=== PATIENT | male | born 1990 | race Caucasian/White ===

== ENCOUNTER → 2016-11-13 | Outpatient (CLI) | payer BC ==
[2016-11-13 07:33] LABS: CHLORIDE,CL 106 mmol/L (98-110); SODIUM,NA 143 mmol/L (136-146)
== END ==
LOC: MW.LAB 06:27
PROVIDERS: ATTEND Nurse Practitioner Family
DX: R10.9 Unspecified abdominal pain (principal); R19.7 Diarrhea, unspecified
CPT/HCPCS: 36415; 80053; 81001; 82272; 83630; 84443; 85025; 87046; 87324; 87328; 87329; 87338; 87899

== ENCOUNTER → 2016-11-14 | Outpatient (CLI) | payer BC ==
--- NOTE | 2016-11-14 09:13 | CR ---
EXAMINATION: Abdomen HISTORY: Pain COMPARISON: None TECHNIQUE: AP and upright views FINDINGS: There is no free air under the diaphragm. There is a nonobstructive bowel gas pattern. No abnormal calcifications. No organomegaly. The visualized osseous structures appear normal. IMPRESSION: Unremarkable abdominal films.
== END | disposition home or self-care (01) ==
LOC: MW.DI 08:30
PROVIDERS: ATTEND Nurse Practitioner Family
DX: R10.9 Unspecified abdominal pain (principal); R19.7 Diarrhea, unspecified
CPT/HCPCS: 74020; 74020-26

== ENCOUNTER 2019-02-28 14:43 | Emergency (ER) | payer BC ==
--- NOTE | 2019-02-28 14:58 | EDM.PDOC ---
ED HPI GENERAL MEDICAL PROBLEM - General Chief Complaint: Skin Complaint Stated Complaint: SORE ON TAIL BONE Time Seen by Provider: 02/28/19 14:44 Source of Information: Reports: Patient History Limitations: Reports: No Limitations - History of Present Illness INITIAL COMMENTS - FREE TEXT/NARRATIVE: HISTORY AND PHYSICAL: History of present illness: Patient is a 28-year-old male who presents to the emergency room with concerns of an abscess to his tailbone. Patient reports he has had pilonidal cysts in the past and presentation today is similar.Patient denies any fever, chills, headache, change in vision, syncope or near syncope. Denies any chest pain, back pain, shortness of breath or cough. Denies any abdominal pain, nausea, vomiting, diarrhea, constipation or dysuria. Has not noted any blood in urine or stool. Denies any testicular swelling, erythema or discomfort. Patient has been eating and drinking appropriately. Review of systems: As per history of present illness and below otherwise all systems reviewed and negative. Past medical history: As per history of present illness and as reviewed below otherwise noncontributory. Surgical history: As per history of present illness and as reviewed below otherwise noncontributory. Social history: See social history for further information Family history: As per history of present illness and as reviewed below otherwise noncontributory. Physical exam: General: Well-developed and well-nourished 28-year-old male. Alert and oriented. Nontoxic appearing and in no acute distress. HEENT: Atraumatic, normocephalic, pupils equal and reactive bilaterally, negative for conjunctival pallor or scleral icterus, mucous membranes moist, TMs normal bilaterally, throat clear, neck supple, nontender, trachea midline. No drooling or trismus noted. No meningeal signs. No hot potato voice noted. Lungs: Clear to auscultation, breath sounds equal bilaterally, chest nontender. Heart: S1S2, regular rate and rhythm without overt murmur Abdomen: Soft, nondistended, nontender. Negative for masses or hepatosplenomegaly. Negative for costovertebral tenderness. Pelvis: Stable nontender. Genitourinary: Deferred. Rectal: Pilonidal cysts noted above the tailbone. This does not extend into the gluteus or rectum. Skin: 1.5cm circular pilonidal cyst noted above the tailbone with mild erythema at the site. Area is fluctuant and tender to palpation. Otherwise skin is intact , warm, dry. No lesions or rashes noted. Extremities: Atraumatic, moves all extremities per self without difficulty or deficits. See skin for details. Neurovascular unremarkable. Neuro: Awake, alert, oriented. Cranial nerves II through XII unremarkable. Cerebellum unremarkable. Motor and sensory unremarkable throughout. Exam nonfocal. Notes: Consent was obtained from the patient. Betadine was used to cleanse the area. 11 blade was used for I&D. Moderate amount of pearly drainage was expressed from the site. Area was cleansed, no packing required. Home care and supportive care measures were reviewed and discussed. Voices understanding and is agreeable to plan of care. Denies any further questions or concerns at this time. Diagnostics: None Therapeutics: I&D Prescription: Bactrim DS Tramadol Impression: Pilonidal cyst Plan: 1. Keep the skin clean and dry. Warm salt water soaks if able or irrigate with the shower as we discussed 2. Tylenol and/or ibuprofen as needed for pain management. 3. Follow-up with your primary care provider as we discussed. Return to the ED as needed and as discussed. Definitive disposition and diagnosis as appropriate pending reevaluation and review of above. tailbone Pain Score (Numeric/FACES): 6 - Related Data Allergies Allergy/AdvReac Type Severity Reaction Status Date / Time No Known Allergies Allergy Verified 02/28/19 14:52 Home Meds: Home Meds hydrOXYzine HCl [hydrOXYzine] 50 mg PO Q6H PRN #20 tab 12/01/13 [Rx] Escitalopram Oxalate [Lexapro] 20 mg PO DAILY 02/28/19 [History] Sulfamethoxazole/Trimethoprim [Bactrim Ds Tablet] 1 each PO BID 5 Days #10 tablet 02/28/19 [Rx] buPROPion [Wellbutrin] 300 mg PO DAILY 02/28/19 [History] traMADol [Ultram] 50 mg PO Q4H PRN #15 tab 02/28/19 [Rx] Past Medical History - Past Health History Medical/Surgical History: Denies Medical/Surgical History ED ROS GENERAL - Review of Systems Review Of Systems: ROS reveals no pertinent complaints other than HPI. ED EXAM, SKIN/RASH Exam: See Below (See dictation) Course - Vital Signs Last Recorded V/S: Last Vital Signs Temp 97.5 F 02/28/19 14:54 Pulse 95 02/28/19 14:54 Resp 18 02/28/19 14:54 BP 150/94 H 02/28/19 14:54 Pulse Ox 97 02/28/19 14:54 - Orders/Labs/Meds Meds: Medications Discontinued Medications Generic Name Dose Route Start Last Admin Trade Name Freq PRN Reason Stop Dose Admin Lidocaine HCl 5 ml 02/28/19 14:56 Xylocaine-Mpf 1% INJECT 02/28/19 14:57 ONETIME ONE Departure - Departure Time of Disposition: 15:24 Disposition: Home, Self-Care 01 Clinical Impression: Pilonidal cyst - Discharge Information Prescriptions: Sulfamethoxazole/Trimethoprim [Bactrim Ds Tablet] 1 each PO BID 5 Days #10 tablet traMADol [Ultram] 50 mg PO Q4H PRN #15 tab PRN Reason: Pain Instructions: Pilonidal Cyst Referrals: PCP,Not In Area [Primary Care Provider] - Forms: ED Department Discharge Additional Instructions: The following information is given to patients seen in the emergency department who are being discharged to home. This information is to outline your options for follow-up care. We provide all patients seen in our emergency department with a follow-up referral. The need for follow-up, as well as the timing and circumstances, are variable depending upon the specifics of your emergency department visit. If you don't have a primary care physician on staff, we will provide you with a referral. We always advise you to contact your personal physician following an emergency department visit to inform them of the circumstance of the visit and for follow-up with them and/or the need for any referrals to a consulting specialist. The emergency department will also refer you to a specialist when appropriate. This referral assures that you have the opportunity for follow-up care with a specialist. All of these measure are taken in an effort to provide you with optimal care, which includes your follow-up. Under all circumstances we always encourage you to contact your private physician who remains a resource for coordinating your care. When calling for follow-up care, please make the office aware that this follow-up is from your recent emergency room visit. If for any reason you are refused follow-up, please contact the [facility] Emergency Department at and asked to speak to the emergency department charge nurse. YVONNE Thakkar [facility] [address] [place] [address] [facility] [address] [place] [id number] 1. Keep the skin clean and dry. Warm salt water soaks if able or irrigate with the shower as we discussed 2. Take prescriptions as directed. Tylenol and/or ibuprofen as needed for pain management. 3. Follow-up with your primary care provider as we discussed. Return to the ED as needed and as discussed.
== END 2019-02-28 15:30 | disposition home or self-care (01) ==
LOC: MW.ED 14:43
DX: L05.91 Pilonidal cyst without abscess (principal); Z79.899 Other long term (current) drug therapy
CPT/HCPCS: 10080; 99282; J2001